=== PATIENT | male | born 1955 | race Caucasian/White ===

== ENCOUNTER 2021-08-23 08:11 | Outpatient (CLI) | payer BC, SELFPAY | END 2021-08-23 08:12 | disposition home or self-care (01) | LOC: OP CLINIC 08:12 | PROVIDERS: PCP Physician Assistant Medical; Visit Provider Surgery | DX: Z12.11 Encounter for screening for malignant neoplasm of colon (principal); K63.5 Polyp of colon; K57.30 Diverticulosis of large intestine without perforation or abscess without bleeding; Z86.010 Personal history of colon polyps | CPT/HCPCS: 45385; 88305; 99153; J1200; J2250; J3010 ==

== ENCOUNTER 2022-08-08 08:44 | Outpatient (CLI) | payer BC, SELFPAY | END 2022-08-08 08:45 | disposition home or self-care (01) | PROVIDERS: PCP Physician Assistant Medical; Visit Provider Physician Assistant Medical | DX: Z00.00 Encounter for general adult medical examination without abnormal findings (principal); E78.5 Hyperlipidemia, unspecified; E53.8 Deficiency of other specified B group vitamins; E29.1 Testicular hypofunction; R79.89 Other specified abnormal findings of blood chemistry; N52.9 Male erectile dysfunction, unspecified; Z12.5 Encounter for screening for malignant neoplasm of prostate | CPT/HCPCS: 80053; 80061; 82306; 82607; 84153 ==

== ENCOUNTER 2023-01-22 07:35 | Day surgery (SDC) | payer MEDICARE, SELFPAY ==
[2023-01-22 07:58] VITALS: BMI 32.0
[2023-01-22 08:02] VITALS: BP 144/81; PULSE 62; RESP 16; TEMP 36.8; O2SAT 98
[2023-01-22] MEDS: SODIUM CHLORIDE 0.9 % (FLUSH) 10 ML SYRINGE IVF (08:10)
[2023-01-22] MEDS: LACTATED RINGERS 1000 ML 1,000 ML 100 ML IV (08:10)
[2023-01-22] MEDS: BUPIVACAINE 0.5 %/EPI 1:200K 30 ML INJECTION (09:11)
[2023-01-22] MEDS: TETRACAINE 0.5% OPHTH 1 DROP EYE-LEFT (09:11)
[2023-01-22] MEDS: TETRACAINE 0.5% OPHTH 1 DROP EYE-RIGHT (09:11)
--- NOTE | 2023-01-22 09:39 | W.ANESCHARGE ---
Anesthesia Charges Start Date/Time Anesthesia Start Date: 01/22/23 Anesthesia Start Time: 08:49 Stop Date/Time Anesthesia Stop Date: 01/22/23 Anesthesia Stop Time: 10:02
--- NOTE | 2023-01-22 10:01 | W.ANESCHARGE ---
Anesthesia Charges Start Date/Time Anesthesia Start Date: 01/22/23 Anesthesia Start Time: 08:49 Stop Date/Time Anesthesia Stop Date: 01/22/23 Anesthesia Stop Time: 10:02
[2023-01-22 10:02] VITALS: BP 153/90; PULSE 70; RESP 16; TEMP 36.9; O2SAT 98
[2023-01-22 10:36] VITALS: BP 147/87; PULSE 68; RESP 16; O2SAT 98
--- NOTE | 2023-01-22 11:47 | W.PM.OPTPROC ---
Procedure Note Date of procedure: 01/22/23 [address] [facility] bill your pro fee for this procedure?: Yes Procedure Description: SURGEON: Karen Strange MD PREOPERATIVE DIAGNOSIS: Dermatochalasis, bilateral upper eyelids. POSTOPERATIVE DIAGNOSIS: Dermatochalasis, bilateral upper eyelids. NAME OF OPERATION: Bilateral upper eyelid blepharoplasty. ANESTHESIA: Local monitored anesthesia care. ESTIMATED BLOOD LOSS: Less than 2 cc. COMPLICATIONS: None. IMPLANTS: None. INDICATIONS: The patient is seen today for bilateral upper eyelid blepharoplasty. The patient complains of upper eyelids interfering with vision. I reviewed the visual jones and facial photographs. Surgery was indicated for functional improvement of vision. The risks, benefits and alternatives were discussed pre-operatively. The risks included pain, infection, bleeding, poor cosmetic result, scarring, asymmetry, need for further treatment including surgery, inability to close lids, dry eyes, decreased vision, loss of vision and loss of eye. The benefits included improvement of symptoms. The alternative was observation and no surgery. All questions were answered to the patient's satisfaction, and the patient elected to proceed with the bilateral upper eyelid blepharoplasty. Informed consent was obtained. PROCEDURE: In a sitting position, the upper eyelid crease was marked with a marking pen, and the pinch technique was used to determine the amount of upper eyelid skin to be excised. A calipers was used to measure for symmetry and to confirm an appropriate amount of remaining skin. The patient was taken to the operating room. 4 cc of anesthetic was injected subcutaneously along the full extent of each upper eyelid. This anesthetic was made with 1:1 of 2% lidocaine with epinephrine and 0.5% bupivacaine. Both eyes were prepped and draped in the usual sterile ophthalmic fashion. The following was performed on both the right and left upper eyelid: A #15 blade was used to incise the skin. Bishops and Pankaj scissors were used to excise the skin and orbicularis muscle. Handheld cautery was used to achieve hemostasis. The eyelids were examined for symmetry. The skin was closed with a running 6-0 nylon suture. Erythromycin ointment was applied to the wounds. The patient tolerated the procedure well. DISPOSITION: The patient was sent to the recovery room and discharged to home in stable condition. The patient was given my postoperative instructions handout. The patient was told to ice as directed. The patient will apply erythromycin ophthalmic ointment to the eyelids three times a day until the sutures are removed, then for another three days. The patient will follow up in one week for suture removal or sooner as needed. The patient was instructed to call me or go to the emergency department with any sudden change, including dramatic loss of vision, excessive bleeding, redness or discharge from the incisions, or severe pain in the eye.
== END 2023-01-22 10:39 | disposition home or self-care (01) ==
PROVIDERS: PCP Physician Assistant Medical; Visit Provider Ophthalmology
PROC: (CPT 15823; principal; 2023-01-22 08:00)
DX: H02.834 Dermatochalasis of left upper eyelid (principal); H02.831 Dermatochalasis of right upper eyelid; H53.8 Other visual disturbances
CPT/HCPCS: 15823; 00103; J2250; J2704; J3490; J7120

== ENCOUNTER 2023-09-03 10:24 | Outpatient (CLI) | payer MEDICARE, SELFPAY | END 2023-09-03 10:25 | disposition home or self-care (01) | LOC: NFLDREF 09-05 09:36 | PROVIDERS: PCP Physician Assistant Medical; Referring Provider Physician Assistant Medical; Visit Provider Physician Assistant Medical | DX: R30.0 Dysuria (principal); N39.0 Urinary tract infection, site not specified; N30.00 Acute cystitis without hematuria; B34.9 Viral infection, unspecified; E78.5 Hyperlipidemia, unspecified; R79.89 Other specified abnormal findings of blood chemistry; Z12.5 Encounter for screening for malignant neoplasm of prostate | CPT/HCPCS: 80053; 80061; 87086; G0103 ==

== ENCOUNTER 2023-09-30 11:15 | Outpatient (CLI) | payer MEDICARE, SELFPAY | END 2023-09-30 11:16 | disposition home or self-care (01) | PROVIDERS: PCP Physician Assistant Medical; Visit Provider Physician Assistant Medical | DX: Z00.00 Encounter for general adult medical examination without abnormal findings (principal); I10 Essential (primary) hypertension; E78.2 Mixed hyperlipidemia; E53.8 Deficiency of other specified B group vitamins; R79.89 Other specified abnormal findings of blood chemistry; R73.9 Hyperglycemia, unspecified; N52.8 Other male erectile dysfunction; I25.10 Atherosclerotic heart disease of native coronary artery without angina pectoris; Z12.5 Encounter for screening for malignant neoplasm of prostate | CPT/HCPCS: 80053; 80061; 82306; 82607; 84443; G0103 ==

== ENCOUNTER 2023-10-16 07:58 | Outpatient (RCR) | payer MEDICARE, SELFPAY ==
[2023-10-16] MEDS: SODIUM CHLORIDE 0.9 % (FLUSH) 10 ML SYRINGE IVF (08:48)
[2023-10-16] MEDS: REGADENOSON 0.4 MG/5 ML SYRINGE IVP (08:48)
[2023-10-16 09:07] VITALS: BP 197/63; PULSE 87; RESP 18
--- NOTE | 2023-10-16 09:35 | W.PM.STED ---
Stress Test Note Date Date Seen: 10/16/23 Date of test: 10/16/23 Providers Referring provider: Alexander Swift Primary care provider: Alexander Swift Stress test physician: Chloe Herrmann Stress Test Note Stress test ordered: Lexiscan Indication for test: CAD, SOB, left chest, axillary, neck pains. Stress test medicine: Lexiscan Results discussion: Resting EKG: Sinus rhythm, 70 beats per minute. Flipped T-waves lead 3 and V1. Resting blood pressure: 187/83 Stress test: Patient was consented on Lexiscan. Patient performed a walking Lexiscan without difficulty. Had some initial shortness of breath with the administration of the regadenoson. He had no chest pain. There was occasional PVC seen which patient was asymptomatic. There was no EKG evidence of any ischemia, no arrhythmia. He did have hypertension noted with his blood pressures. Await nuclear images to couple this for a full formal diagnostic. Impression: Subjectively negative, objectively negative EKG portion of this Lexiscan. Follow up suggested: Patient will be discharge once he has had his post stress images obtained. He will await the final formal report with the reading of the images.
== END 2023-10-28 23:59 | disposition home or self-care (01) ==
LOC: STRESS 07:58
PROVIDERS: PCP Physician Assistant Medical; Visit Provider Physician Assistant Medical
DX: R07.9 Chest pain, unspecified (principal); R06.02 Shortness of breath
CPT/HCPCS: 78452; 93016; 93017; A9500; J2785

== ENCOUNTER 2024-01-26 09:13 | Outpatient (CLI) | payer MEDICARE, SELFPAY | END 2024-01-26 09:14 | disposition home or self-care (01) | LOC: NFLDREF 01-27 04:19 | PROVIDERS: PCP Physician Assistant Medical; Referring Provider Physician Assistant Medical; Visit Provider Physician Assistant Medical | DX: I10 Essential (primary) hypertension (principal) | CPT/HCPCS: 80048 ==

== ENCOUNTER 2024-07-26 07:44 | Outpatient (CLI) | payer MEDICARE, SELFPAY | END 2024-07-26 07:45 | disposition home or self-care (01) | PROVIDERS: PCP Physician Assistant Medical; Visit Provider Physician Assistant Medical | DX: Z00.00 Encounter for general adult medical examination without abnormal findings (principal); E78.2 Mixed hyperlipidemia; I10 Essential (primary) hypertension; E53.8 Deficiency of other specified B group vitamins; E55.9 Vitamin D deficiency, unspecified; R53.83 Other fatigue; R79.89 Other specified abnormal findings of blood chemistry | CPT/HCPCS: 80053; 80061; 82306; 82607; 82728; 84403; 84443 ==

== ENCOUNTER 2024-08-24 06:21 | Outpatient (CLI) | payer MEDICARE, SELFPAY ==
--- NOTE | 2024-08-24 08:16 | P.ANES_ITS ---
Anesthesia Charges Start Date/Time Anesthesia Start Date: 08/24/24 Anesthesia Start Time: 07:23 Stop Date/Time Anesthesia Stop Date: 08/24/24 Anesthesia Stop Time: 08:14 Coding CPT Codes CPT Codes: ANES UPR LWR GI NDSC PX - 11471 ([id number]) P2 - PATIENT W/MILD SYST DISEASE, QK - INBOUND CUSTOMER SERVICE REPRESENTATIVE 2-4 CNCRNT ANES PROC, QX - SOLAR DESIGNER/INSTALLER SVC W/ MD MED DIRECTION
--- NOTE | 2024-08-24 08:16 | W.ANESCHARGE ---
Anesthesia Charges Start Date/Time Anesthesia Start Date: 08/24/24 Anesthesia Start Time: 07:23 Stop Date/Time Anesthesia Stop Date: 08/24/24 Anesthesia Stop Time: 08:14 Coding CPT Codes CPT Codes: ANES UPR LWR GI NDSC PX - 59196 ([id number]) P2 - PATIENT W/MILD SYST DISEASE, QK - COLLEGE AND CAREER COUNSELOR 2-4 CNCRNT ANES PROC, QX - REGASIFICATION PLANT OPERATOR SVC W/ MD MED DIRECTION
--- NOTE | 2024-08-24 08:19 | P.ANES_ITS ---
Anesthesia Charges Start Date/Time Anesthesia Start Date: 08/24/24 Anesthesia Start Time: 07:23 Stop Date/Time Anesthesia Stop Date: 08/24/24 Anesthesia Stop Time: 08:14 Coding CPT Codes CPT Codes: ANES UPR LWR GI NDSC PX - 99277 ([id number]) P2 - PATIENT W/MILD SYST DISEASE, QX - TAXI DRIVER SVC W/ MD MED DIRECTION, QK - DIGITAL CONTENT MANAGER 2-4 CNCRNT ANES PROC
--- NOTE | 2024-08-24 08:19 | W.ANESCHARGE ---
Anesthesia Charges Start Date/Time Anesthesia Start Date: 08/24/24 Anesthesia Start Time: 07:23 Stop Date/Time Anesthesia Stop Date: 08/24/24 Anesthesia Stop Time: 08:14 Coding CPT Codes CPT Codes: ANES UPR LWR GI NDSC PX - 77724 ([id number]) P2 - PATIENT W/MILD SYST DISEASE, QX - SPRAY TECHNICIAN SVC W/ MD MED DIRECTION, QK - OPERATIONS COORDINATOR 2-4 CNCRNT ANES PROC
== END 2024-08-24 06:22 | disposition home or self-care (01) ==
LOC: OP CLINIC 06:21
PROVIDERS: PCP Physician Assistant Medical; Visit Provider Surgery
DX: Z12.11 Encounter for screening for malignant neoplasm of colon (principal); Z86.0100 Personal history of colon polyps, unspecified; D12.3 Benign neoplasm of transverse colon; K57.30 Diverticulosis of large intestine without perforation or abscess without bleeding; R13.10 Dysphagia, unspecified; K21.9 Gastro-esophageal reflux disease without esophagitis; K44.9 Diaphragmatic hernia without obstruction or gangrene
CPT/HCPCS: 00813; 43239; 45385; 88305; J2704; J3490